=== PATIENT | male | born 1975 ===

== ENCOUNTER 2019-02-18 09:19 | Outpatient (REF) | payer BC, SELFPAY ==
[2019-02-18 21:19] LABS: ALT 44 U/L (16-63); AST 19 U/L (15-37); Albumin 4.7 g/dL (3.4-5.0); Alkaline Phosphatase 64 U/L (46-116); Anion Gap 11.2 mmol/L (3-11); BUN 17 mg/dL (7-18); Bilirubin, Total 0.5 mg/dL (0.2-1.0); CO2 25.8 mmol/L (21.0-32.0); CREATININE 1.02 mg/dL (0.70-1.30); Calcium 9.7 mg/dL (8.5-10.1); Calculated LDL 208 mg/dL; Chloride 105 mmol/L (98-107); Cholesterol 278 mg/dL (<200); Glucose 106 mg/dL (74-106); HDL Cholesterol 45 mg/dL (40-60); Potassium 5.1 mmol/L (3.5-5.1); Sodium 142 mmol/L (136-145); Total Protein 8.1 g/dL (6.4-8.2); Triglyceride 127 mg/dL (<150)
== END 2019-02-18 09:39 ==
LOC: NCHCN 09:19
PROVIDERS: PCP Family Medicine; Visit Provider Family Medicine
DX: Z00.00 Encounter for general adult medical examination without abnormal findings (principal); E66.9 Obesity, unspecified
CPT/HCPCS: 80053; 80061

== ENCOUNTER 2020-03-09 12:31 | Outpatient (REF) | payer BC, SELFPAY ==
[2020-03-09 22:29] LABS: ALT 40 U/L (16-63); AST 16 U/L (15-37); Albumin 4.5 g/dL (3.4-5.0); Alkaline Phosphatase 62 U/L (46-116); Anion Gap 9.7 mmol/L (3-11); BUN 14 mg/dL (7-18); Bilirubin, Total 0.4 mg/dL (0.2-1.0); CO2 27.3 mmol/L (21.0-32.0); Chloride 103 mmol/L (98-107); Cholesterol 245 mg/dL (<200); Glucose 92 mg/dL (74-106); Potassium 4.6 mmol/L (3.5-5.1); Sodium 140 mmol/L (136-145); Total Protein 7.5 g/dL (6.4-8.2); Triglyceride 138 mg/dL (<150)
[2020-03-09 22:59] LABS: Calculated LDL 175 mg/dL (<100); HDL Cholesterol 43 mg/dL (40-60)
[2020-03-12 05:22] LABS: Vitamin D 25 Total 12.7 ng/ml (30-100)
== END 2020-03-09 12:51 ==
LOC: NCHCN 12:31
PROVIDERS: PCP Family Medicine; Visit Provider Family Medicine
DX: Z00.00 Encounter for general adult medical examination without abnormal findings (principal); E78.5 Hyperlipidemia, unspecified; E66.9 Obesity, unspecified
CPT/HCPCS: 80053; 80061; 82306

== ENCOUNTER 2021-01-17 13:21 | Outpatient (REF) | payer BC, SELFPAY ==
[2021-01-17 23:06] LABS: Vitamin D 25 Total 16.8 ng/mL (30-100)
== END 2021-01-17 13:22 | disposition home or self-care (01) ==
LOC: NCHCN 13:21
PROVIDERS: PCP Family Medicine; Visit Provider Family Medicine
DX: E55.9 Vitamin D deficiency, unspecified (principal)
CPT/HCPCS: 82306

== ENCOUNTER 2024-09-21 11:32 | Outpatient (REF) | payer BC, SELFPAY | END 2024-09-21 11:33 | disposition home or self-care (01) | LOC: NCHCN 11:32 | PROVIDERS: PCP Family Medicine; Visit Provider Family Medicine | DX: J02.9 Acute pharyngitis, unspecified (principal) | CPT/HCPCS: 87070 ==